=== PATIENT | female | born 1965 | race African-American/Black ===

== ENCOUNTER 2019-05-10 17:34 | Emergency (ER) | payer OTHER, SELFPAY ==
[2019-05-10] MEDS ORDERED: Ketorolac Tromethamine 60 MG/2 ML VIAL ONE (18:09)
== END 2019-05-10 18:33 | disposition home or self-care (01) ==
LOC: NAV ERS 17:34
DX: M25.551 Pain in right hip (principal); I10 Essential (primary) hypertension; Z79.899 Other long term (current) drug therapy
CPT/HCPCS: 96372; 99281; J1885